=== PATIENT | female | born 1965 | race Caucasian/White ===

== ENCOUNTER 2018-04-09 08:18 | Outpatient (CLI) | payer OTHER ==
--- NOTE | 2018-04-09 10:07 | BD ---
DEXA SCAN: INDICATIONS: Osteoporosis screening. COMPARISON: None. FINDINGS: LUMBAR SPINE BMD (g/cm2) T-SCORE Z-SCORE L1 0.971 -0.2 0.7 L2 1.013 -0.1 0.9 L3 1.034 -0.5 0.6 L4 0.909 -1.4 -0.3 L1-L4 0.979 -0.6 0.4 LEFT FEMORAL NECK 0.852 0.0 1.0 LEFT TOTAL HIP 0.952 0.1 0.7 The WHO Fracture risk Assessment Tool estimates the 10 year fracture risk for a major osteoporotic fr acture for this patient is 4.5% and for a hip fracture is 0.1%. IMPRESSION: Baseline World Health Organization (WHO) classification criteria. The patient's bone mineral densit y is considered within normal limits. There patient is at low risk for a fracture. POS: [facility]
== END 2018-04-09 08:19 | disposition home or self-care (01) ==
LOC: BICMAMMO 08:18
PROVIDERS: ATTEND Preventive Medicine Public Health & General Preventive Medicine
DX: M81.0 Age-related osteoporosis without current pathological fracture (principal)
CPT/HCPCS: 77080

== ENCOUNTER 2020-01-07 13:09 | Outpatient (CLI) | payer OTHER ==
--- NOTE | 2020-02-04 10:23 | MMO ---
Bilateral MAMMO Bilat Screen [facility]. CLINICAL HISTORY: Patient is 54 years old and is seen for screening. The patient has the following family history of breast cancer: mother, at age 55. The patient has a history of Skin cancer. VIEWS: The views performed were: bilateral craniocaudal with tomosynthesis and bilateral mediolateral oblique with tomosynthesis. FILMS COMPARED: No prior imaging studies are available for comparison. This study has been interpreted with the assistance of computer-aided detection. MAMMOGRAM FINDINGS: The breasts are heterogeneously dense, which could obscure a lesion on mammography. There are benign appearing calcifications seen in both breasts. There are no suspicious masses, suspicious calcifications, or new areas of architectural distortion. IMPRESSION: THERE IS NO MAMMOGRAPHIC EVIDENCE OF MALIGNANCY. A ROUTINE FOLLOW-UP MAMMOGRAM IN 1 YEAR IS RECOMMENDED. THE RESULTS OF THIS EXAM WERE SENT TO THE PATIENT. ACR BI-RADS Category 2 - Benign finding MAMMOGRAPHY NOTE: 1. A negative mammogram report should not delay a biopsy if a dominant of clinically suspicious mass is present. 2. Approximately 10% to 15% of breast cancers are not detected by mammography. 3. Adenosis and dense breasts may obscure an underlying neoplasm. Reported by: WILLAM FENG MD Electonically Signed: [id number]
== END 2020-01-07 13:10 | disposition home or self-care (01) ==
LOC: BICMAMMO 13:09
PROVIDERS: ATTEND Preventive Medicine Public Health & General Preventive Medicine
DX: Z12.31 Encounter for screening mammogram for malignant neoplasm of breast (principal); Z85.828 Personal history of other malignant neoplasm of skin; Z80.3 Family history of malignant neoplasm of breast
CPT/HCPCS: 77063; 77067

== ENCOUNTER 2021-12-29 14:37 | Outpatient (CLI) | payer BC | END 2021-12-29 14:38 | disposition home or self-care (01) | LOC: BICMAMMO 14:37 | DX: Z12.31 Encounter for screening mammogram for malignant neoplasm of breast (principal); Z13.820 Encounter for screening for osteoporosis; Z80.3 Family history of malignant neoplasm of breast; Z85.828 Personal history of other malignant neoplasm of skin | CPT/HCPCS: 77063; 77067; 77080 ==